=== PATIENT | male | born 1940 | race Caucasian/White ===

== ENCOUNTER → 2023-07-31 | Emergency (ER) | payer OTHER, SELFPAY ==
[~2023-07-31] MED LIST: EPINEPHrine 1 MG/10 ML SYR IV ONE; SODIUM CHL 0.9% 1000 ML BAG IV ONE
--- NOTE | 2023-07-31 06:52 | EDPHYS ---
Physician Documentation [facility] Name: Albaro Rebollar Age: 83 yrs Sex: Male : 1940 Arrival Date: 07/31/2023 Time: 06:27 Bed 3 Private MD: ED Physician Sy Harrington HPI: 07/31 06:38 This 83 yrs old Male presents to ER via Unassigned with complaints of cardiac sp4 arrest. . 06:38 83-year-old male with history of apparently tracheostomy and prior head and neck sp4 surgery, brought in by EMS in cardiac arrest and asystole. Call for cardiac arrest came in at 5:20 in the morning and EMS arrived at patient's area of residence at 5:40 in the morning. Patient arrived to the emergency room after 40 minutes of resuscitation in the field. EMS reports initially patient had pulseless electrical activity which then deteriorated into asystole. Patient arrived with left wrist 18-gauge IV, is also Jatinder LT tube. Luther device with chest compressions in progress. E MS reports no pulse on multiple pulse checks. Past medical history is unknown. . . Historical: - Allergies: 06:20 PENICILLINS; vc1 - PMHx: 06:20 prostate problems; Hypercholesterolemia; Urinary retention; Throat cancer; vc1 - PSHx: 06:20 Trach; has had for 30 years; vc1 - Family history:: not pertinent. - History obtained from: spouse. ROS: 06:38 Constitutional: ROS not available secondary to unresponsive patient sp4 06:38 All other systems are negative, 06:38 Unable to obtain ROS due to Unresponsive patient, Exam: 06:38 Constitutional: Cyanotic patient , thin appearing male, unresponsive, no spontaneous sp4 respirations, no pulses. Jatinder LT tube in place with ventilations in progress, chest compressions in progress via Luther device, stigmata of COPD. 18-gauge IV present in the left wrist. Head/Face: Normocephalic, atraumatic. Eyes: Pupils equal , dilated and fixed. Negative corneal reflex, negative oculocephalic reflex. ENT: Nares patent. No nasal discharge, no septal abnormalities noted. Tympanic membranes are normal and external auditory canals are clear. Patient has abnormal pharyngeal anatomy without larynx. Apparently has tracheostomy with tracheal stoma patent. On arrival patient intubated into the tracheal stoma. Neck: Trachea midline, no thyromegaly or masses palpated, and no cervical lymphadenopathy. Tracheostomy stoma patent Chest/axilla: Normal chest wall appearance and motion. Nontender with no deformity. No lesions are appreciated. Cardiovascular: Negative pulses and carotid or femoral locations. Negative heart sounds. Respiratory: No spontaneous respirations Abdomen/GI: Soft abdomen nondistended. Back: No spinal deformities, no step-off Male : Normal genitalia with no discharge or lesions. Skin: Warm skin, cyanotic, without rashes MS/ Extremity: Absent peripheral pulses, cyanotic extremities. No deformity Neuro: GCS of 3, pupils dilated and fixed, negative oculocephalic reflex, signs of prolonged hypoxia Vital Signs: 06:40 Weight 66.22 kg; Height 6 ft. 0 in. ; vc1 06:40 Body Mass Index 19.80 (66.22 kg, 182.88 cm) vc1 [place] Coma Score: 06:38 Eye Response: none(1). Motor Response: none(1). Verbal Response: none(1). Total: 3. sp4 Procedures: 06:48 Intubation: Intubated Tube was threaded through a tracheostomy stoma , Ventilated with sp4 Ambu bag. Tube secured with ETT schultz After intubation it is apparent patient has signs of prolonged hypoxia, time of called 6:29 AM. MDM: 06:48 Differential Diagnosis altered mental status, sepsis, flu. Data reviewed: vital signs, sp4 nurses notes, EMS record. ED course: Patient arrived at 6:20 AM after reported 40 minutes of resuscitation. Resuscitation began at 5:40 AM and continued until 6:20 AM until arrival to the emergency room by EMS. On arrival chest compressions were maintained via Luther device. [employer] LT tube was removed and ET tube threaded through tracheostomy stoma . At 6:29 patient was reevaluated and he has no pulses, asystole on the monitor, no spontaneous respirations, no heart sounds, diffuse cyanosis indicative of prolonged hypoxia. Time of called at 06:29 AM. Code resuscitation team and emergency department are all in agreement. . 06:52 Patient medically screened. sp4 07:04 ED course: Patient's was informed about patient's demise. Patient has history of sp4 throat cancer head and neck surgery, history of hyperlipidemia and history of prostatic hypertrophy. Patient generally goes to [facility] for his medical care. . Administered Medications: No medications were administered Disposition: 06:48 . sp4 Disposition Summary: 07/31/23 06:52 Patient Notes: Location: Home sp4 Pronouncing Physician: Sy Harrington Time of : 06:29 07/31/2023 sp4 Diagnosis - Cardiac arrest due to other underlying condition sp4 - Acute respiratory failure with hypoxia sp4 - Tracheostomy dependent patient sp4 Signatures: Jessica Rosado RN RN vc1 Sy Harrington MD MD sp4
--- NOTE | 2023-07-31 06:52 | ER ---
Nurse's Notes [facility] Name: Albaro Rebollar Age: 83 yrs Sex: Male : 1940 Arrival Date: 07/31/2023 Time: 06:27 Bed 3 Private MD: Diagnosis: Cardiac arrest due to other underlying condition;Acute respiratory failure with hypoxia;Tracheostomy dependent patient Presentation: 07/31 06:20 Chief complaint: EMS states: Pts heard what sounded like he fell around 0520. We vc1 arrived 15 minutes later and the patient was in [facility]. Upon transfer patient went into asystole and has remained in asystole ever since. 06:20 Coronavirus screen: unknown. Ebola Screen: Patient negative for fever greater than or vc1 equal to 101.5 degrees Fahrenheit, and additional compatible Ebola Virus Disease symptoms Patient denies exposure to infectious person. Patient denies travel to an Ebola-affected area in the 21 days before illness onset. No symptoms or risks identified at this time. Onset of symptoms was July 31, 2023 at 05:20. Care prior to arrival: Jatinder tube CPR via thumper performed by EMS Medication(s) given: epi x3, bicarb x1 IV initiated. 18 GA, in the left wrist. Activity prior to arrival: unresponsive. Transition of care: patient was not received from another setting of care. 06:20 Method Of Arrival: EMS: [facility] vc1 06:20 Acuity: LUIS 1 vc1 Triage Assessment: 06:20 General: Appears slender, Behavior is unresponsive. Pain: Unable to use pain scale. vc1 Patient is unresponsive. Cardiovascular: Rhythm is asystole. Respiratory: Airway via trache Respiratory pattern is apnea. Historical: - Allergies: 06:20 PENICILLINS; vc1 - PMHx: 06:20 prostate problems; Hypercholesterolemia; Urinary retention; Throat cancer; vc1 - PSHx: 06:20 Trach; has had for 30 years; vc1 - Family history:: not pertinent. - History obtained from: spouse. Assessment: 06:39 General:. General: General: Pt arrived via EMS at 0620. Compressions administered via vc1 thumper, compressions have been going for 45 minutes with no ROSC. 06 pulse check administered, no pulse palpated, compressions resumed. 06 1 amp epi administered followed by flush. 0626 1 amp bicarp administered followed by flush. 0627 1 amp epi administered followed by flush. 06 pulse check done, no pulse palpated. Asystole on monitor. TOD 0629. Vital Signs: 06:40 Weight 66.22 kg; Height 6 ft. 0 in. ; vc1 06:40 Body Mass Index 19.80 (66.22 kg, 182.88 cm) vc1 [place] Coma Score: 06:38 Eye Response: none(1). Motor Response: none(1). Verbal Response: none(1). Total: 3. sp4 ED Course: 06:30 Patient arrived in ED. kmf 06:37 Sy Harrington MD is Attending Physician. sp4 06:45 Triage completed. vc1 06:47 Police notified at 06:[address] to call out a compliance technician. kmf 06:51 Sy Harrington MD is Pronouncing Provider. sp4 Administered Medications: No medications were administered Outcome: 06:29 Patient : Time of 06:29 Pronounced by Sy Harrington MD [facility] 06:29 Condition: 08:41 Patient left the ED. kc6 Signatures: Jessica Rosado RN RN vc1 Yarely Alcala RN RN kc6 Sy Harrington MD MD sp4 Brenda Díaz [facility] Corrections: (The following items were deleted from the chart) 06:41 06:40 65.77 kg; Height 6 ft. 0 in.; BMI: 19.6; vc1 vc1 06:55 06:39 General: vc1 [facility]
== END ==
LOC: ER 06:27
DX: J96.01 Acute respiratory failure with hypoxia (principal); I46.8 Cardiac arrest due to other underlying condition; Z93.0 Tracheostomy status; Z85.89 Personal history of malignant neoplasm of other organs and systems; Z88.0 Allergy status to penicillin
CPT/HCPCS: 31500; 99284; J0171; J7030